=== PATIENT | female | born 1930 | race Caucasian/White ===

== ENCOUNTER 2021-08-09 14:44 | Inpatient (IN) | payer MEDICARE, MEDICAID ==
[~2021-08-09] VITALS: Ht 170.2 cm; Wt 100.0 kg
[~2021-08-09 14:44] MED LIST: ALBU8.5H17 IH; ASPI-611 PO; FLUT50DI IH; HYDR12.55 PO; LEVO100T9 PO; LISI20TA28 PO
[2021-08-09] MEDS ORDERED: normal saline 1000ml 1,000 ML IV ONE (15:00)
[2021-08-09 15:32] LABS: BASOPHILS % (AUTO) 0.9 % (0-1); EOSINOPHILS # (AUTO) 0.3 X10'3 (0-0.9); HEMATOCRIT 35.1 % (35.0-45.0); HEMOGLOBIN 11.9 g/dl (12.0-16.0); LYMPHOCYTES # (AUTO) 1.4 X10'3 (1.1-4.8); LYMPHOCYTES % (AUTO) 26.4 % (21-51); MEAN CORPUSCULAR HEMOGLOBIN 30.7 PG (27.0-31.0); MEAN CORPUSCULAR HGB CONC 33.7 g/dL (33.0-36.5); MEAN CORPUSCULAR VOLUME 90.9 FL (78-98); MEAN PLATELET VOLUME 7.3 FL (7.4-10.4); MONOCYTES # (AUTO) 0.4 X10'3 (0-0.9); MONOCYTES % (AUTO) 7.7 % (2-12); NEUTROPHILS # (AUTO) 3.2 X10'3 (1.8-7.7); PLATELET COUNT 180 X10'3 (140-440); RED BLOOD COUNT 3.87 X10'6 (4.20-5.60); RED CELL DISTRIBUTION WIDTH 13.7 % (11.5-14.5); WHITE BLOOD COUNT 5.4 X10'3 (4.5-11.0)
[2021-08-09 15:49] LABS: ALANINE AMINOTRANSFERASE 31 U/L (12-78); ALBUMIN 2.9 G/DL (3.4-5.0); ALBUMIN/GLOBULIN RATIO 0.7 (1.1-1.5); ALKALINE PHOSPHATASE 60 IU/L (46-116); ANION GAP 7 (8-16); ASPARTATE AMINO TRANSFERASE 25 U/L (10-37); BILIRUBIN,TOTAL 0.2 MG/DL (0.1-1.0); BLOOD UREA NITROGEN 25 MG/DL (7-18); BUN/CREATININE RATIO 23.4 (6.6-38.0); CALCIUM 9.9 MG/DL (8.5-10.1); CHLORIDE 106 MMOL/L (99-107); CREATININE 1.07 MG/DL (0.40-0.90); POTASSIUM 3.1 MMOL/L (3.5-5.1); SODIUM 145 MMOL/L (135-145); TOTAL CARBON DIOXIDE 32.3 MMOL/L (24-32); eGFR 48 ML/MIN
[2021-08-09 15:53] LABS: LIPASE 131 U/L (73-393); MAGNESIUM 1.7 MG/DL (1.5-2.4)
[2021-08-09 15:54] LABS: GLUCOSE 112 MG/DL (70-104)
--- NOTE | 2021-08-09 16:34 | NUR ---
PT TO CT
[2021-08-09 16:39] LABS: APTT 21 SECONDS (22-32)
--- NOTE | 2021-08-09 16:45 | NUR ---
PT RETURNED FROM CT.
[2021-08-09] MEDS ORDERED: piperacillin/tazo 3.375gm/50ml 50 ML IV ONE (17:50)
[2021-08-09] MEDS ORDERED: potassium CL 10mEq/100ml bag 100 ML IV ONE (18:00)
[2021-08-09] MEDS ORDERED: magnesium 4gm in 100ml NS 100 ML IV PRN (18:00)
[2021-08-09] MEDS ORDERED: metoclopramide 5 mg/ml inj IV PRN (18:00)
[2021-08-09] MEDS ORDERED: acetaminophen 325mg tablet PO PRN ×2 (18:00)
[2021-08-09] MEDS ORDERED: magnesium 2GM in 50ml NS 50 ML IV PRN (18:00)
[2021-08-09] MEDS ORDERED: acetaminophen 650mg rectal suppository RC PRN (18:00)
[2021-08-09] MEDS ORDERED: ondansetron 4mg rapidly disintigrating tab PO PRN (18:00)
[2021-08-09] MEDS ORDERED: magnesium Cl slow-release 64mg tablet PO PRN (18:00)
[2021-08-09] MEDS ORDERED: mag hydrox/Alum hydrox/simeth 30ml oral suspension PO PRN (18:00)
[2021-08-09] MEDS ORDERED: potassium Cl 20 mEq SR tablet PO PRN (18:00)
[2021-08-09] MEDS ORDERED: ondansetron/PF 4mg/2ml inj IV PRN (18:00)
[2021-08-09] MEDS ORDERED: UNABLE TO OBTAIN (18:24)
[2021-08-09] MEDS: potassium Cl 20mEq in NS 1,000 ML IV SCH (19:58)
[2021-08-09] MEDS: docusate sod 100mg capsule PO SCH (20:00)
[2021-08-09] MEDS: K and/or MAG REPLACEMENT MC SCH (20:02)
[2021-08-09 20:11] LABS: CLARITY,URINE SLIGHTLY CLOUDY (Clear); COLOR,URINE YELLOW (Yellow); GLUCOSE, URINE NEGATIVE (Neg); KETONES,URINE NEGATIVE (Neg); LEUKOCYTE ESTERASE ,URINE TRACE (Neg); NITRITES, URINE POSITIVE (Neg); OCCULT BLOOD,URINE LARGE (Neg); PH,URINE 5.5 (4.8-8.0); PROTEIN,URINE 30 mg/dl (Neg); UROBILINOGEN,URINE 0.2 E.U/dL (0.2-1.0)
[2021-08-09 20:18] LABS: UA COLLECTION TYPE NON-SPECIFIED
[2021-08-09 20:20] LABS: BACTERIA,URINE 4+ /HPF (Neg); SQUAMOUS EPITHELIAL CELL,UR FEW /LPF (FEW)
[2021-08-09 20:21] LABS: RBC,URINE 20-50 /HPF (0-2); WBC,URINE 20-30 /HPF (0-4)
[2021-08-09] MEDS ORDERED: temazepam 15mg capsule PO PRN (21:00)
--- NOTE | 2021-08-09 21:00 | NUR ---
pt proceeded to remove NG tuber from nare
[2021-08-09] MEDS: diatr meglu/diatrizoate 30ml oral sol.-(3 dose) bottle PO SCH (22:39)
[2021-08-10] VITALS (8 sets, daily range): BP systolic 142–185; BP diastolic 56–87
[2021-08-10] MEDS ORDERED: piperacillin/tazo 3.375gm/50ml 50 ML IV SCH
[2021-08-10] MEDS ORDERED: amLODIPine 5mg tablet PO ONE (02:40)
[2021-08-10] MEDS: potassium Cl 20mEq in NS 1,000 ML IV SCH ×4 (02:54→20:41)
[2021-08-10] MEDS: piperacillin/tazo 3.375gm/50ml 50 ML IV SCH ×2 (06:09→12:23)
[2021-08-10 06:21] LABS: BASOPHILS % (AUTO) 0.8 % (0-1); EOSINOPHILS # (AUTO) 0.3 X10'3 (0-0.9); EOSINOPHILS % (AUTO) 6.4 % (0-6); HEMATOCRIT 31.7 % (35.0-45.0); HEMOGLOBIN 10.9 g/dl (12.0-16.0); LYMPHOCYTES # (AUTO) 1.5 X10'3 (1.1-4.8); LYMPHOCYTES % (AUTO) 29.7 % (21-51); MEAN CORPUSCULAR HGB CONC 34.3 g/dL (33.0-36.5); MEAN CORPUSCULAR VOLUME 90.6 FL (78-98); MEAN PLATELET VOLUME 7.3 FL (7.4-10.4); MONOCYTES # (AUTO) 0.4 X10'3 (0-0.9); MONOCYTES % (AUTO) 8.3 % (2-12); NEUTROPHILS # (AUTO) 2.9 X10'3 (1.8-7.7); NEUTROPHILS % (AUTO) 54.8 % (42-75); PLATELET COUNT 166 X10'3 (140-440); RED CELL DISTRIBUTION WIDTH 13.7 % (11.5-14.5); WHITE BLOOD COUNT 5.2 X10'3 (4.5-11.0)
[2021-08-10 06:26] LABS: ALANINE AMINOTRANSFERASE 31 U/L (12-78); ALBUMIN 2.7 G/DL (3.4-5.0); ALBUMIN/GLOBULIN RATIO 0.7 (1.1-1.5); ALKALINE PHOSPHATASE 55 IU/L (46-116); ANION GAP 6 (8-16); ASPARTATE AMINO TRANSFERASE 26 U/L (10-37); BILIRUBIN,TOTAL 0.3 MG/DL (0.1-1.0); BLOOD UREA NITROGEN 24 MG/DL (7-18); BUN/CREATININE RATIO 23.1 (6.6-38.0); CALCIUM 9.4 MG/DL (8.5-10.1); CHLORIDE 109 MMOL/L (99-107); CREATININE 1.04 MG/DL (0.40-0.90); MAGNESIUM 1.8 MG/DL (1.5-2.4); SODIUM 146 MMOL/L (135-145); TOTAL CARBON DIOXIDE 31.4 MMOL/L (24-32); TOTAL PROTEIN 6.4 G/DL (6.4-8.2); eGFR 50 ML/MIN
--- NOTE | 2021-08-10 06:30 | NUR ---
SPOKE TO PT FACILITY, OBTAINED DAUGHTER'S NUMBER CALLED GI X2 TO UPDATE ON FINDINGS AND BEGIN CONSENT PROCESS, NO ANSWER X2 EVANGELISTA RN NOTIFIED IN REPORT OF PATIENT PT CURRENTLY LYING IN BED RESTING, AWAKENS TO NOISE, MEDICATION GIVEN AND NGT CLAMPED
--- NOTE | 2021-08-10 06:50 | NUR ---
Patient in room [facility]. I have received report from GUERRERO Adam and had the opportunity to ask questions and assume patient care.
[2021-08-10 06:54] LABS: GLUCOSE 112 MG/DL (70-104)
[2021-08-10 06:56] LABS: POTASSIUM 2.9 MMOL/L (3.5-5.1)
[2021-08-10] MEDS ORDERED: HYDROchlorothiazide 25mg tablet PO SCH (08:00)
[2021-08-10] MEDS: K and/or MAG REPLACEMENT MC SCH ×2 (08:07→20:39)
[2021-08-10] MEDS: pantoprazole 40MG/NS 100ML BAG 100 ML IV SCH (08:18)
[2021-08-10] MEDS: lisinopril 20mg tablet PO SCH (08:18)
[2021-08-10] MEDS: docusate sod 100mg capsule PO SCH (08:19)
[2021-08-10] MEDS: diatr meglu/diatrizoate 30ml oral sol.-(3 dose) bottle PO SCH ×2 (08:21→11:05)
[2021-08-10] MEDS: potassium CL 10mEq/100ml bag 100 ML IV PRN ×6 (09:51→20:33)
[2021-08-10] MEDS ORDERED: iohexol 300mg/ml 100ml inj. ONE (10:56)
[2021-08-10] MEDS ORDERED: diatr meglu/diatrizoate 30ml oral sol.-(3 dose) bottle ONE ×2 (10:57→10:58)
--- NOTE | 2021-08-10 15:44 | NUR ---
PRESSURE ULCER EDUCATION: DEFINITION: A pressure ulcer is an area of skin that breaks down when you stay in one position too long. The constant pressure against the skin reduces the blood flow to that area and the affected tissue dies. CAUSES: "Being bedridden or in a wheelchair "Fragile skin "Having a chronic condition, such as diabetes or vascular disease "Inability to move certain parts of your body without assistance "Older age "Incontinence of urine or stool SYMPTOMS: "A reddened area that DOES NOT turn white when pressed on - this can be the beginning of a pressure ulcer "A blister, deep sore or a crater - these can be advanced pressure ulcers FIRST AID: "Relieve the pressure on this area "Keep the area clean and dry "Call your primary doctor if you see any of the above symptoms "DO NOT massage the area "DO NOT use a donut shaped or ring shaped pillow- these actually interfere with the blood flow and cause complications PREVENTION: "Check for pressure ulcers everyday "Change position at least every two hours to relieve pressure "Use items that help relieve pressure- pillows, sheepskin, foam padding, and powders. "Keep skin clean and dry "Eat healthy well balanced meals "Exercise daily IF YOU SEE ANY OF THESE SYMPTOMS WHILE IN THE HOSPITAL - TELL YOUR NURSE IMMEDIATELY. IF YOU SEE ANY OF THESE SYMPTOMS WHILE AT HOME OR HAVE ANY QUESTIONS OR CONCERNS ABOUT PRESSURE ULCERS - CALL YOUR PRIMARY DOCTOR IMMEDIATELY. Addendum: 08/10/21 at 1544 by Shannon Rock RN Amended: Links added.
--- NOTE | 2021-08-10 15:53 | NUR ---
Age Screen: Pt admit w/ possible bowel obstruction DX proctocolitis per CT note in EMR. Pt has no significant weakness, no edema, skin intact, and appears WD/WN per MD note. Pending scaled wt this admit w/ no prior scaled wt hx. Pt remains NPO w/ R NG to suction -80ml per EMR. Will monitor for nutrition intervention needs this admit. Addendum: 08/10/21 at [address] Amended: Links added.
--- NOTE | 2021-08-10 19:00 | NUR ---
Problems reprioritized. Patient report given, questions answered & plan of care reviewed with GUERRERO Ribera.
[2021-08-11] VITALS: BP 131/77
[2021-08-11] MEDS: potassium CL 10mEq/100ml bag 100 ML IV PRN ×2 (00:03→02:23)
[2021-08-11 06:30] VITALS: BP_SYST 131; BP_SYST 147; BP_DIAS 61; BP_DIAS 77
--- NOTE | 2021-08-11 06:50 | NUR ---
Patient in room [facility]. I have received report from GUERRERO Ribera and had the opportunity to ask questions and assume patient care.
[2021-08-11 08:00] LABS: BASOPHILS % (AUTO) 0.4 % (0-1); EOSINOPHILS # (AUTO) 0.4 X10'3 (0-0.9); EOSINOPHILS % (AUTO) 8.4 % (0-6); HEMATOCRIT 30.7 % (35.0-45.0); HEMOGLOBIN 10.4 g/dl (12.0-16.0); LYMPHOCYTES # (AUTO) 1.1 X10'3 (1.1-4.8); LYMPHOCYTES % (AUTO) 22.5 % (21-51); MEAN CORPUSCULAR HEMOGLOBIN 31.2 PG (27.0-31.0); MEAN CORPUSCULAR HGB CONC 33.9 g/dL (33.0-36.5); MONOCYTES # (AUTO) 0.4 X10'3 (0-0.9); MONOCYTES % (AUTO) 8.3 % (2-12); NEUTROPHILS # (AUTO) 3.1 X10'3 (1.8-7.7); NEUTROPHILS % (AUTO) 60.4 % (42-75); PLATELET COUNT 157 X10'3 (140-440); RED BLOOD COUNT 3.34 X10'6 (4.20-5.60); RED CELL DISTRIBUTION WIDTH 13.7 % (11.5-14.5); WHITE BLOOD COUNT 5.1 X10'3 (4.5-11.0)
[2021-08-11 08:14] LABS: ALANINE AMINOTRANSFERASE 21 U/L (12-78); ALBUMIN 2.5 G/DL (3.4-5.0); ALBUMIN/GLOBULIN RATIO 0.7 (1.1-1.5); ALKALINE PHOSPHATASE 52 IU/L (46-116); ANION GAP 10 (8-16); ASPARTATE AMINO TRANSFERASE 27 U/L (10-37); BILIRUBIN,TOTAL 0.4 MG/DL (0.1-1.0); BLOOD UREA NITROGEN 19 MG/DL (7-18); BUN/CREATININE RATIO 17.4 (6.6-38.0); CALCIUM 8.9 MG/DL (8.5-10.1); CHLORIDE 111 MMOL/L (99-107); CREATININE 1.09 MG/DL (0.40-0.90); GLUCOSE 96 MG/DL (70-104); MAGNESIUM 1.7 MG/DL (1.5-2.4); POTASSIUM 3.4 MMOL/L (3.5-5.1); SODIUM 147 MMOL/L (135-145); TOTAL CARBON DIOXIDE 26.5 MMOL/L (24-32); TOTAL PROTEIN 6.2 G/DL (6.4-8.2); eGFR 47 ML/MIN
[2021-08-11] MEDS: K and/or MAG REPLACEMENT MC SCH ×2 (09:16→19:29)
[2021-08-11] MEDS: pantoprazole 40MG/NS 100ML BAG 100 ML IV SCH (10:37)
[2021-08-11] MEDS: lisinopril 20mg tablet PO SCH (10:38)
[2021-08-11] MEDS: potassium Cl 20 mEq SR tablet PO PRN ×3 (10:38→19:27)
[2021-08-11] MEDS: potassium Cl 20mEq in NS 1,000 ML IV SCH (10:43)
[2021-08-11 12:00] VITALS: BP 158/53
[2021-08-11] MEDS ORDERED: bisacodyl 10mg suppository rectal RC PRN (12:15)
[2021-08-11 18:00] VITALS: BP 183/65
[2021-08-11] MEDS: hydrALAZINE 20mg/ml inj. IV PRN (19:20)
[2021-08-12] VITALS: BP 163/58
[2021-08-12] MEDS: potassium Cl 20mEq in NS 1,000 ML IV SCH ×2 (00:48→19:44)
[2021-08-12] MEDS: magnesium hydroxide 30ml (MOM) UD suspension PO PRN ×2 (04:47→19:50)
[2021-08-12] MEDS: K and/or MAG REPLACEMENT MC SCH ×2 (08:00→20:00)
[2021-08-12] MEDS: pantoprazole 40MG/NS 100ML BAG 100 ML IV SCH (09:56)
[2021-08-12] MEDS: lisinopril 20mg tablet PO SCH (09:56)
[2021-08-12] MEDS: hydrALAZINE 20mg/ml inj. IV PRN ×2 (11:29→23:38)
[2021-08-12 12:13] LABS: BASOPHILS % (AUTO) 0.8 % (0-1); EOSINOPHILS # (AUTO) 0.4 X10'3 (0-0.9); EOSINOPHILS % (AUTO) 7.5 % (0-6); HEMATOCRIT 32.4 % (35.0-45.0); HEMOGLOBIN 10.9 g/dl (12.0-16.0); LYMPHOCYTES # (AUTO) 1.4 X10'3 (1.1-4.8); LYMPHOCYTES % (AUTO) 27.6 % (21-51); MEAN CORPUSCULAR HEMOGLOBIN 30.7 PG (27.0-31.0); MEAN CORPUSCULAR HGB CONC 33.5 g/dL (33.0-36.5); MEAN CORPUSCULAR VOLUME 91.6 FL (78-98); MEAN PLATELET VOLUME 7.9 FL (7.4-10.4); MONOCYTES # (AUTO) 0.5 X10'3 (0-0.9); MONOCYTES % (AUTO) 9.4 % (2-12); NEUTROPHILS # (AUTO) 2.7 X10'3 (1.8-7.7); NEUTROPHILS % (AUTO) 54.7 % (42-75); PLATELET COUNT 166 X10'3 (140-440); RED BLOOD COUNT 3.54 X10'6 (4.20-5.60); RED CELL DISTRIBUTION WIDTH 13.6 % (11.5-14.5)
[2021-08-12 12:28] LABS: ALANINE AMINOTRANSFERASE 24 U/L (12-78); ALBUMIN 2.7 G/DL (3.4-5.0); ALBUMIN/GLOBULIN RATIO 0.7 (1.1-1.5); ALKALINE PHOSPHATASE 59 IU/L (46-116); ANION GAP 9 (8-16); ASPARTATE AMINO TRANSFERASE 23 U/L (10-37); BILIRUBIN,TOTAL 0.3 MG/DL (0.1-1.0); BLOOD UREA NITROGEN 13 MG/DL (7-18); BUN/CREATININE RATIO 12.6 (6.6-38.0); CALCIUM 8.9 MG/DL (8.5-10.1); CHLORIDE 108 MMOL/L (99-107); CREATININE 1.03 MG/DL (0.40-0.90); MAGNESIUM 1.7 MG/DL (1.5-2.4); POTASSIUM 3.6 MMOL/L (3.5-5.1); SODIUM 143 MMOL/L (135-145); TOTAL CARBON DIOXIDE 25.7 MMOL/L (24-32); TOTAL PROTEIN 6.6 G/DL (6.4-8.2); eGFR 50 ML/MIN
[2021-08-12 12:35] LABS: GLUCOSE 121 MG/DL (70-104)
--- NOTE | 2021-08-12 17:49 | NUR ---
sent Dr Martinez a message: re: 355B/ Alfredo Patients K+ is 3.6 can we discontinue NS with 20meq? Also daughter is requesting a call , Jody [phone]
[2021-08-12 18:00] VITALS: BP 152/100
--- NOTE | 2021-08-12 19:45 | NUR ---
Report received from Elena abdomen still distended no BM MD made aware , will continue to administer suppository and MOM as order.
[2021-08-12] MEDS ORDERED: lactulose 20gm/30ml cup PO PRN (20:10)
[2021-08-12] MEDS ORDERED: magnesium citrate 296ml oral solution PO ONE (20:10)
[2021-08-12] MEDS ORDERED: mineral oil 133ml enema RC PRN (20:10)
[2021-08-12] MEDS: polyethylene glycol 3350 17gm powd pack PO SCH (21:36)
[2021-08-13] VITALS: BP 192/84
--- NOTE | 2021-08-13 00:57 | NUR ---
Patient abdomen distended Doctor Yesenia made aware new order noted , patient offer multiple med and refused educated about possible effect.
--- NOTE | 2021-08-13 03:31 | NUR ---
Patient abdomen distended no bowel movement noted, hypoactive bowel sounds, pt may benefit from enema, pt too combative at this time, will reassess.
[2021-08-13] MEDS: potassium Cl 20mEq in NS 1,000 ML IV SCH ×2 (03:42→23:28)
[2021-08-13 05:54] LABS: BASOPHILS % (AUTO) 0.5 % (0-1); EOSINOPHILS # (AUTO) 0.4 X10'3 (0-0.9); EOSINOPHILS % (AUTO) 8.5 % (0-6); HEMATOCRIT 31.8 % (35.0-45.0); HEMOGLOBIN 10.8 g/dl (12.0-16.0); LYMPHOCYTES # (AUTO) 1.5 X10'3 (1.1-4.8); LYMPHOCYTES % (AUTO) 29.5 % (21-51); MEAN CORPUSCULAR HEMOGLOBIN 31.1 PG (27.0-31.0); MEAN CORPUSCULAR HGB CONC 33.9 g/dL (33.0-36.5); MEAN CORPUSCULAR VOLUME 91.7 FL (78-98); MEAN PLATELET VOLUME 7.6 FL (7.4-10.4); MONOCYTES # (AUTO) 0.5 X10'3 (0-0.9); MONOCYTES % (AUTO) 10.2 % (2-12); NEUTROPHILS # (AUTO) 2.7 X10'3 (1.8-7.7); NEUTROPHILS % (AUTO) 51.3 % (42-75); PLATELET COUNT 164 X10'3 (140-440); RED BLOOD COUNT 3.47 X10'6 (4.20-5.60); RED CELL DISTRIBUTION WIDTH 14.1 % (11.5-14.5); WHITE BLOOD COUNT 5.2 X10'3 (4.5-11.0)
[2021-08-13 06:12] LABS: ALANINE AMINOTRANSFERASE 22 U/L (12-78); ALBUMIN 2.6 G/DL (3.4-5.0); ALBUMIN/GLOBULIN RATIO 0.7 (1.1-1.5); ALKALINE PHOSPHATASE 55 IU/L (46-116); ANION GAP 8 (8-16); ASPARTATE AMINO TRANSFERASE 21 U/L (10-37); BILIRUBIN,TOTAL 0.2 MG/DL (0.1-1.0); BLOOD UREA NITROGEN 11 MG/DL (7-18); BUN/CREATININE RATIO 11.8 (6.6-38.0); CALCIUM 9.1 MG/DL (8.5-10.1); CHLORIDE 113 MMOL/L (99-107); CREATININE 0.93 MG/DL (0.40-0.90); POTASSIUM 3.3 MMOL/L (3.5-5.1); SODIUM 147 MMOL/L (135-145); TOTAL CARBON DIOXIDE 25.7 MMOL/L (24-32); TOTAL PROTEIN 6.5 G/DL (6.4-8.2); eGFR 57 ML/MIN
[2021-08-13 06:17] LABS: GLUCOSE 111 MG/DL (70-104)
--- NOTE | 2021-08-13 06:43 | NUR ---
Report giving to Hitesh no distress
[2021-08-13 07:23] VITALS: BP 176/67
[2021-08-13] MEDS: pantoprazole 40MG/NS 100ML BAG 100 ML IV SCH (07:34)
[2021-08-13] MEDS: lisinopril 20mg tablet PO SCH (07:40)
[2021-08-13] MEDS: K and/or MAG REPLACEMENT MC SCH ×2 (08:00→20:00)
--- NOTE | 2021-08-13 08:08 | NUR ---
Age Screen: Pt admit w/ possible bowel obstruction DX proctocolitis per CT note in EMR. Pt currently on Clear liquid diet w/ mostly 100% intake of meals except one refusal, not meeting needs; needs minimal assistance. Recommend advancing diet to Regular as medically indicated per MD discretion. LBM 08/11 receiving routine and PRN bowel care. Limited nutrition intervention at this time, will continue to monitor. Recs: 1. Advance as tolerated to Regular diet 2. Monitor need for ONS 3. Bowel care per MD 4. Scaled wts Addendum: 08/13/21 at [address] Amended: Links added.
[2021-08-13 12:00] VITALS: BP 163/62
[2021-08-13] MEDS ORDERED: metoclopramide 5 mg/ml inj IV PRN (12:10)
--- NOTE | 2021-08-13 14:19 | NUR ---
PAGER ID: [phone] MESSAGE: Hitesh Surg [phone] Re: [id number] Suzanna Nickerson Patient states she is congested and needs something. Thanks Hitesh.
--- NOTE | 2021-08-13 18:31 | NUR ---
Problems reprioritized. Patient report given, questions answered & plan of care reviewed with YUE MASTERS.
[2021-08-13] MEDS ORDERED: PEG 3350/Na sulf,bicarb,Cl/KCl oral sol 4 liter bottle PO ONE (18:40)
[2021-08-13 19:18] VITALS: BP 190/80
[2021-08-13 20:00] VITALS: BP 156/65
[2021-08-13] MEDS: polyethylene glycol 3350 17gm powd pack PO SCH (20:34)
[2021-08-13] MEDS ORDERED: potassium Cl 20 mEq SR tablet PO PRN ×2 (21:15)
[2021-08-13] MEDS ORDERED: potassium CL 10mEq/100ml bag 100 ML IV PRN (21:15)
[2021-08-14] VITALS (17 sets, daily range): BP systolic 123–176; BP diastolic 63–97
[2021-08-14] MEDS: pantoprazole 40MG/NS 100ML BAG 100 ML IV SCH (08:00)
[2021-08-14] MEDS: K and/or MAG REPLACEMENT MC SCH ×2 (08:00→19:45)
[2021-08-14] MEDS ORDERED: diphenhydrAMINE 50 mg/ml inj ONE (08:07)
[2021-08-14] MEDS ORDERED: MIDAZolam 1 MG/ML 5ML VIAL ONE (08:07)
[2021-08-14] MEDS ORDERED: fentaNYL/PF 50MCG/1 ML 2ML syringe ONE (08:07)
[2021-08-14 09:05] LABS: EOSINOPHILS # (AUTO) 0.4 X10'3 (0-0.9); EOSINOPHILS % (AUTO) 9.1 % (0-6); HEMATOCRIT 32.7 % (35.0-45.0); LYMPHOCYTES # (AUTO) 1.4 X10'3 (1.1-4.8); LYMPHOCYTES % (AUTO) 30.3 % (21-51); MEAN CORPUSCULAR HEMOGLOBIN 31.1 PG (27.0-31.0); MEAN CORPUSCULAR HGB CONC 33.8 g/dL (33.0-36.5); MEAN CORPUSCULAR VOLUME 92.2 FL (78-98); MEAN PLATELET VOLUME 7.6 FL (7.4-10.4); MONOCYTES # (AUTO) 0.4 X10'3 (0-0.9); MONOCYTES % (AUTO) 8.5 % (2-12); NEUTROPHILS # (AUTO) 2.3 X10'3 (1.8-7.7); NEUTROPHILS % (AUTO) 51.1 % (42-75); PLATELET COUNT 170 X10'3 (140-440); RED BLOOD COUNT 3.55 X10'6 (4.20-5.60); WHITE BLOOD COUNT 4.5 X10'3 (4.5-11.0)
[2021-08-14 09:14] LABS: ALANINE AMINOTRANSFERASE 21 U/L (12-78); ALBUMIN 2.6 G/DL (3.4-5.0); ALBUMIN/GLOBULIN RATIO 0.7 (1.1-1.5); ALKALINE PHOSPHATASE 57 IU/L (46-116); ANION GAP 10 (8-16); ASPARTATE AMINO TRANSFERASE 21 U/L (10-37); BILIRUBIN,TOTAL 0.3 MG/DL (0.1-1.0); BLOOD UREA NITROGEN 9 MG/DL (7-18); CALCIUM 8.7 MG/DL (8.5-10.1); CHLORIDE 110 MMOL/L (99-107); POTASSIUM 3.5 MMOL/L (3.5-5.1); SODIUM 146 MMOL/L (135-145); TOTAL CARBON DIOXIDE 26.1 MMOL/L (24-32); TOTAL PROTEIN 6.3 G/DL (6.4-8.2); eGFR 59 ML/MIN
[2021-08-14 09:17] LABS: GLUCOSE 104 MG/DL (70-104)
[2021-08-14] MEDS ORDERED: LISI20TA28 PO (10:45)
[2021-08-14] MEDS ORDERED: METO5TAB85 PO (10:45)
[2021-08-14] MEDS: potassium Cl 20mEq in NS 1,000 ML IV SCH ×2 (12:55→17:04)
--- NOTE | 2021-08-14 15:39 | NUR ---
Message to dr Martinez "PAGER ID: [phone] MESSAGE: just FYI: pt will not be able to return to her assisted living due to lack of [id number] . will be picked up in am 355B Alfredo~ Venita elias [phone]"
[2021-08-14] MEDS: lisinopril 20mg tablet PO SCH (17:03)
[2021-08-14] MEDS: polyethylene glycol 3350 17gm powd pack PO SCH (20:10)
[2021-08-15] MEDS: potassium Cl 20mEq in NS 1,000 ML IV SCH ×2 (03:13→17:31)
[2021-08-15] MEDS: K and/or MAG REPLACEMENT MC SCH ×2 (07:49→20:00)
[2021-08-15] MEDS: pantoprazole 40MG/NS 100ML BAG 100 ML IV SCH (07:50)
[2021-08-15] MEDS: lisinopril 20mg tablet PO SCH (07:52)
[2021-08-15 08:00] VITALS: BP 194/78
[2021-08-15 11:00] VITALS: BP 173/66
--- NOTE | 2021-08-15 12:35 | NUR ---
message to "PAGER ID: [phone] MESSAGE: 173/ hr 70 unable to obtain iv access to give iv prn and pt to be returned to facility very soon ~Venita [phone]"
--- NOTE | 2021-08-15 12:36 | NUR ---
VO obtained from dr rollins for PO 10mg lisinopril now
[2021-08-15] MEDS ORDERED: lisinopril 10 MG tablet PO ONE (12:40)
[2021-08-15 18:00] VITALS: BP 166/103
--- NOTE | 2021-08-15 18:49 | NUR ---
dr middleton made aware in person of no iv access. ok to continue w/o iv site. pt d/c return to facility once transportation avail
[2021-08-15] MEDS: polyethylene glycol 3350 17gm powd pack PO SCH (20:10)
[2021-08-16] MEDS: lisinopril 20mg tablet PO SCH (07:03)
[2021-08-16 07:11] VITALS: BP 188/87
[2021-08-16] MEDS: potassium Cl 20mEq in NS 1,000 ML IV SCH ×2 (07:49→23:19)
[2021-08-16 08:00] VITALS: BP 186/95
[2021-08-16] MEDS: K and/or MAG REPLACEMENT MC SCH ×2 (08:00→19:27)
[2021-08-16 11:00] VITALS: BP 210/88
[2021-08-16] MEDS ORDERED: lisinopril 10 MG tablet PO ONE (12:10)
--- NOTE | 2021-08-16 13:46 | NUR ---
Reassessment: Pt continues on Clear liquid diet w/ mostly 0-25% intake of meals not meeting needs. Pt is clinically stable per GI note w/ recommendations for regular laxative therapy. LBM 08/14 w/ routine and PRN bowel care. Recommend advancing to regular diet as tolerated. Given inadequate PO for 7 days, severe muscle weakness and BUE/BLE 2+ edema pt meets minimum criteria for malnutrition, MD notified. Will continue to monitor Recs: 1. Advance as tolerated to Regular diet 2. Monitor need for ONS 3. Bowel care per MD 4. Scaled wts Addendum: 08/16/21 at [address] Amended: Links added.
--- NOTE | 2021-08-16 14:45 | NUR ---
PAGER ID: [phone] MESSAGE: clem elias [phone] re: elmer eddyb. pts bp 210/100. please advise
--- NOTE | 2021-08-16 15:00 | NUR ---
Patient was very pleasant throughout majority of shift. Pt was repositioned q2h throughout shift by nursing staff/techs. Pt remains extremely hard of hearing making assessment difficult at times. Around 1730 pt became extremely agitated yelling " get me out of here, my cheated on me!" Daughter (Jody) contacted and was able to speak with patient and calm her down. Per case management pt has a 0945 d/c vegetable picker time scheduled on 08/18/21. Primary rn to continue monitoring patient/needs.
[2021-08-16] MEDS: hydrALAZINE 20mg/ml inj. IV PRN (15:21)
--- NOTE | 2021-08-16 17:05 | NUR ---
PAGER ID: [phone] MESSAGE: clem elias [phone] re: elmer eddy 355. pts bp 195/89 post 10mg hydralazine. please advise
[2021-08-16 18:00] VITALS: BP 123/64
[2021-08-16] MEDS: polyethylene glycol 3350 17gm powd pack PO SCH (20:46)
[2021-08-17] VITALS: BP 161/98
--- NOTE | 2021-08-17 06:30 | NUR ---
Patient in room [facility]. I have received report from GUERRERO Quevedo (Traveler), and had the opportunity to ask questions and assume patient care.
[2021-08-17 08:00] VITALS: BP 160/87
[2021-08-17] MEDS: K and/or MAG REPLACEMENT MC SCH ×2 (08:00→20:00)
[2021-08-17] MEDS: pantoprazole 40mg Tablet.DR PO SCH (08:18)
[2021-08-17] MEDS: lisinopril 20mg tablet PO SCH (08:18)
--- NOTE | 2021-08-17 08:51 | NUR ---
Received order to DC IV and advance diet as norman. Addendum: 08/17/21 at 0856 by Rashmi Awad RN Heart healthy diet ordered in [facility].
[2021-08-17 11:00] VITALS: BP 104/65
[2021-08-17 18:00] VITALS: BP 161/90
--- NOTE | 2021-08-17 18:15 | NUR ---
Patient report given, questions answered & plan of care reviewed with GUERRERO Smiley.
--- NOTE | 2021-08-17 18:32 | NUR ---
Patient in room [facility]. I have received report from GUERRERO Caraballo and had the opportunity to ask questions and assume patient care.
[2021-08-17] MEDS: polyethylene glycol 3350 17gm powd pack PO SCH (21:00)
[2021-08-18] VITALS: BP 162/57
[2021-08-18 05:41] LABS: BASOPHILS # (AUTO) 0.1 X10'3 (0-0.2); BASOPHILS % (AUTO) 1.2 % (0-1); EOSINOPHILS # (AUTO) 0.3 X10'3 (0-0.9); EOSINOPHILS % (AUTO) 6.6 % (0-6); HEMATOCRIT 31.5 % (35.0-45.0); HEMOGLOBIN 10.5 g/dl (12.0-16.0); LYMPHOCYTES # (AUTO) 1.3 X10'3 (1.1-4.8); LYMPHOCYTES % (AUTO) 29.2 % (21-51); MEAN CORPUSCULAR HEMOGLOBIN 30.9 PG (27.0-31.0); MEAN CORPUSCULAR HGB CONC 33.3 g/dL (33.0-36.5); MEAN CORPUSCULAR VOLUME 92.8 FL (78-98); MEAN PLATELET VOLUME 7.3 FL (7.4-10.4); MONOCYTES # (AUTO) 0.4 X10'3 (0-0.9); MONOCYTES % (AUTO) 9.4 % (2-12); NEUTROPHILS # (AUTO) 2.4 X10'3 (1.8-7.7); NEUTROPHILS % (AUTO) 53.6 % (42-75); PLATELET COUNT 184 X10'3 (140-440); RED CELL DISTRIBUTION WIDTH 14.2 % (11.5-14.5); WHITE BLOOD COUNT 4.5 X10'3 (4.5-11.0)
--- NOTE | 2021-08-18 05:47 | NUR ---
Problems reprioritized. Patient report given, questions answered & plan of care reviewed with GUERRERO Dunlap.
[2021-08-18 06:03] LABS: ALBUMIN 2.4 G/DL (3.4-5.0); ANION GAP 6 (8-16); BLOOD UREA NITROGEN 12 MG/DL (7-18); BUN/CREATININE RATIO 9.5 (6.6-38.0); CALCIUM 8.7 MG/DL (8.5-10.1); CHLORIDE 108 MMOL/L (99-107); CREATININE 1.26 MG/DL (0.40-0.90); GLUCOSE 116 MG/DL (70-104); POTASSIUM 3.4 MMOL/L (3.5-5.1); SODIUM 143 MMOL/L (135-145); eGFR 40 ML/MIN
--- NOTE | 2021-08-18 06:36 | NUR ---
Patient in room [facility]. I have received report from WILI MASTERS and had the opportunity to ask questions and assume patient care.
[2021-08-18 07:00] VITALS: BP 198/71
--- NOTE | 2021-08-18 07:03 | NUR ---
Problems reprioritized. Patient report given, questions answered & plan of care reviewed with FOUZIA MASTERS.
[2021-08-18] MEDS: K and/or MAG REPLACEMENT MC SCH (07:28)
[2021-08-18 08:00] VITALS: BP 160/69
[2021-08-18] MEDS: pantoprazole 40mg Tablet.DR PO SCH (08:00)
[2021-08-18 08:01] VITALS: BP_SYST 160
[2021-08-18] MEDS: lisinopril 20mg tablet PO SCH (08:01)
--- NOTE | 2021-08-18 10:20 | NUR ---
PATIENT DISCHARGED AT 1001. WAS PICKED UP BY [facility] AND [facility]. PATIENT EDUCATED AND BELONGINGS (SHIRT) SENT WITH PATIENT. WILL CALL FOR REPORT TO RECEIVING FACILITY.
--- NOTE | 2021-08-18 10:29 | NUR ---
REPORT GIVEN TO AMANDA BRADLEY RN AT [facility] IN [facility].
== END 2021-08-18 10:15 | DRG 391 ==
LOC: ER 14:45 → ED HOLD 18:04 → SUR 3N 23:55
PROVIDERS: ADMIT Family Medicine; ATTEND Family Medicine
PROC: BW211ZZ Computerized Tomography (CT Scan) of Abdomen and Pelvis using Low Osmolar Contrast (ICD-10-PCS; principal; 2021-08-10)
PROC: 0D7N8ZZ Dilation of Sigmoid Colon, Via Natural or Artificial Opening Endoscopic (ICD-10-PCS; 2021-08-14)
DX: K59.81 Ogilvie syndrome (principal); E43 Unspecified severe protein-calorie malnutrition; Z66 Do not resuscitate; E87.6 Hypokalemia; K52.9 Noninfective gastroenteritis and colitis, unspecified; E03.9 Hypothyroidism, unspecified; F03.90 Unspecified dementia, unspecified severity, without behavioral disturbance, psychotic disturbance, mood disturbance, and anxiety; I12.9 Hypertensive chronic kidney disease with stage 1 through stage 4 chronic kidney disease, or unspecified chronic kidney disease; N18.9 Chronic kidney disease, unspecified; J44.9 Chronic obstructive pulmonary disease, unspecified; E66.01 Morbid (severe) obesity due to excess calories; M19.90 Unspecified osteoarthritis, unspecified site; Z74.01 Bed confinement status; Z68.34 Body mass index [BMI] 34.0-34.9, adult; Z87.440 Personal history of urinary (tract) infections; Z79.890 Hormone replacement therapy
CPT/HCPCS: 36415; 45337; 74018; 74176; 74177; 80048; 80053; 81001; 83605; 83690; 83735; 84132; 84145; 84439; 84443; 84484; 85025; 85610; 85730; 87040; 87077; 87081; 87088; 87186; 93005; 97110; 97162; 99152; 99153; 99291; A4620; C9113; G0378; J0360; J1200; J2250; J2543; J3010; J3480; J7030; J7040; Q9963; Q9967